=== PATIENT | male | born 2000 | race Caucasian/White ===

== ENCOUNTER 2019-05-25 09:14 | Emergency (ER) | payer OTHER ==
[~2019-05-25] VITALS: Ht 190.5 cm; Wt 72.6 kg
[2019-05-25 10:25] VITALS: BP 116/62
== END 2019-05-25 10:25 | disposition home or self-care (01) ==
LOC: M.ERS 09:14
DX: B27.90 Infectious mononucleosis, unspecified without complication (principal)